=== PATIENT | female | born 1990 | race Caucasian/White ===

== ENCOUNTER 2019-03-14 11:15 | Observation (INO) | payer OTHER ==
[~2019-03-14] VITALS: Ht 157.5 cm; Wt 118.4 kg
== END 2019-03-14 14:40 | disposition home or self-care (01) ==
LOC: SPU 11:15
PROVIDERS: ADMIT Specialist; ATTEND Specialist
DX: Z34.93 Encounter for supervision of normal pregnancy, unspecified, third trimester (principal); Z3A.37 37 weeks gestation of pregnancy
CPT/HCPCS: 76815; 81002; G0378

== ENCOUNTER 2019-03-22 20:00 | Inpatient (IN) | payer OTHER ==
[~2019-03-22] VITALS: Ht 157.5 cm; Wt 117.9 kg
[2019-03-22] MEDS ORDERED: TEMAZEPAM 15 MG CAPSULE PO PRN (21:00)
[2019-03-22] MEDS ORDERED: NALBUPHINE HCL 10 MG/ML AMP IVP PRN (21:30)
[2019-03-22] MEDS ORDERED: TERBUTALINE SULFATE 1 MG/ML VIAL SUBCUT PRN (21:30)
[2019-03-22 22:05] VITALS: BP_SYST 152
[2019-03-22 22:20] LABS: BASOPHILS # (AUTO) 0.1 K/uL (0.0-0.2); BASOPHILS % (AUTO) 0.5 % (0.0-2.0); EOSINOPHILS # (AUTO) 0.2 K/uL (0.0-0.4); EOSINOPHILS % (AUTO) 1.8 % (0.0-4.0); HEMATOCRIT 36.3 % (36-48); HEMOGLOBIN 12.1 g/dL (12.0-16.0); LYMPHOCYTES % (AUTO) 15.5 % (20.5-51.5); MEAN CORPUSCULAR HEMOGLOBIN 29 pg (27-31); MEAN CORPUSCULAR HGB CONC 33 % (32-36); MEAN CORPUSCULAR VOLUME 86 fL (79.0-98.0); MONOCYTES # (AUTO) 0.7 K/uL (0.0-1.0); MONOCYTES % (AUTO) 5.7 % (1.7-9.3); NEUTROPHILS # (AUTO) 9.8 K/uL (1.8-7.7); NEUTROPHILS % (AUTO) 76.5 % (40.0-70.0); PLATELET COUNT (AUTO) 328 K/uL (130-430); RED BLOOD CELL COUNT(AUTO) 4.23 MIL/uL (4.2-6.2); RED CELL DISTRIBUTION WIDTH 14.6 % (9.0-15.0); WHITE BLOOD COUNT (AUTO) 12.9 K/uL (4.8-10.8)
[2019-03-22] MEDS ORDERED: DINOPROSTONE 10 MG SUPP VG SCH (22:20)
[2019-03-22] MEDS: LR 1,000 ML IV SCH (22:23)
[2019-03-23] MEDS: LR 1,000 ML IV SCH ×2 (13:35→18:02)
[2019-03-23] MEDS: OXYTOCIN/0.9 % SODIUM CHLORIDE 1,000 ML IV SCH (13:36)
[2019-03-23] MEDS ORDERED: TEMAZEPAM 15 MG CAPSULE PO SCH (21:00)
[2019-03-24] MEDS: OXYTOCIN/0.9 % SODIUM CHLORIDE 1,000 ML IV SCH (04:31)
[2019-03-24] MEDS: LR 1,000 ML IV SCH (07:14)
[2019-03-24] MEDS ORDERED: LR 500 ML IV ONE (10:09)
[2019-03-24] MEDS ORDERED: FENT2mCg/mL-ROPIVA0.2%/NS EPID 200 ML EP SCH (10:15)
[2019-03-24] MEDS ORDERED: fentaNYL CITRATE/PF 100 MCG/2 ML AMP ONE (10:22)
[2019-03-24] MEDS ORDERED: ROPIVACAINE HCL/PF 0.2% 200 ML ONE (10:22)
[2019-03-24] MEDS ORDERED: CEFAZOLIN 2 GM IVPB PREMIX 50 ML IV ONE (15:45)
[2019-03-24] MEDS ORDERED: LR 1,000 ML IV SCH (16:42)
[2019-03-24] MEDS ORDERED: OXYTOCIN/0.9 % SODIUM CHLORIDE 1,000 ML IV ONE (16:42)
[2019-03-24] MEDS ORDERED: DIPHENHYDRAMINE INJ 50 MG/ML VIAL IVP PRN (16:45)
[2019-03-24] MEDS ORDERED: DIPH-TET-PERTUS Vaccine 0.5 ML VIAL (ADACEL) I.M. PRN (16:45)
[2019-03-24] MEDS ORDERED: KETOROLAC TROMETHAMINE 60 MG/2 ML VIAL IM PRN (16:45)
[2019-03-24] MEDS ORDERED: MEASLES,MUMPS&RUBELLA VACC/PF 12500 UNIT/0.5 ML VIAL SUBQ PRN (16:45)
[2019-03-24] MEDS ORDERED: NALOXONE HCL 0.4 MG/ML AMP (NARCAN) IVP PRN ×2 (16:45)
[2019-03-24] MEDS ORDERED: HYDROcodone/ACETAMIN 5-325 MG TAB (NORCO/ VICODIN) PO PRN (16:45)
[2019-03-24] MEDS ORDERED: NALBUPHINE HCL 10 MG/ML AMP IVP PRN (16:45)
[2019-03-24] MEDS ORDERED: MORPHINE SULFATE 10MG/10ML PF AMP EP SCH (16:45)
[2019-03-24] MEDS ORDERED: LANOLIN 7 GM OINT. TP PRN (16:45)
[2019-03-24] MEDS ORDERED: RHO(D) IMMUNE GLOBULIN/MALTOSE 1500 UNITS/1.3 ML (WINHRO) IM PRN (16:45)
[2019-03-24] MEDS ORDERED: BISACODYL 10 MG/SUPPOSITORY RC PRN (16:45)
[2019-03-24] MEDS ORDERED: ONDANSETRON HCL 4 MG/2 ML VIAL IVP PRN (16:45)
[2019-03-24] MEDS ORDERED: fentaNYL CITRATE/PF 100 MCG/2 ML AMP IVP PRN ×2 (16:45)
[2019-03-24 17:33] VITALS: BP_SYST 115
[2019-03-24] MEDS ORDERED: ONDANSETRON HCL 4 MG/2 ML VIAL ONE (17:40)
[2019-03-24] MEDS ORDERED: MORPHINE SULFATE 10MG/10ML PF AMP EP ONE (17:40)
[2019-03-24] MEDS ORDERED: NS IRRIG SOLN 1000 ML IR ONE (17:40)
[2019-03-24] MEDS ORDERED: OXYTOCIN/0.9 % SODIUM CHLORIDE 20 UNITS/1,000 ML BAG IV ONE (17:40)
[2019-03-24] MEDS ORDERED: LR 1,000 ML IV.SOLN IV ONE (17:40)
[2019-03-24] MEDS ORDERED: TEMAZEPAM 15 MG CAPSULE PO PRN (21:00)
[2019-03-24] MEDS ORDERED: CEFAZOLIN 1 GM IVPB PREMIX 50 ML IV SCH (22:00)
[2019-03-24] MEDS ORDERED: METOCLOPRAMIDE HCL 10 MG/2 ML VIAL IVP PRN (22:45)
[2019-03-24] MEDS ORDERED: METOCLOPRAMIDE HCL 10 MG/2 ML VIAL ONE (22:53)
[2019-03-24] MEDS: SIMETHICONE 80 MG TAB.CHEW PO PRN (23:53)
[2019-03-24] MEDS: KETOROLAC TROMETHAMINE 30 MG VIAL IVP SCH (23:53)
[2019-03-24] MEDS: CEFAZOLIN 1 GM IVPB PREMIX 50 ML IV SCH (23:57)
[2019-03-25] MEDS: KETOROLAC TROMETHAMINE 30 MG VIAL IVP SCH ×4 (05:33→23:49)
[2019-03-25] MEDS: CEFAZOLIN 1 GM IVPB PREMIX 50 ML IV SCH ×2 (05:46→11:31)
[2019-03-25] MEDS: SIMETHICONE 80 MG TAB.CHEW PO PRN ×3 (05:48→20:43)
[2019-03-25 07:30] LABS: BASOPHILS # (AUTO) 0.1 K/uL (0.0-0.2); BASOPHILS % (AUTO) 0.5 % (0.0-2.0); EOSINOPHILS # (AUTO) 0.1 K/uL (0.0-0.4); EOSINOPHILS % (AUTO) 0.8 % (0.0-4.0); HEMATOCRIT 28.9 % (36-48); HEMOGLOBIN 9.7 g/dL (12.0-16.0); LYMPHOCYTES # (AUTO) 1.7 K/uL (1.0-5.5); LYMPHOCYTES % (AUTO) 15.6 % (20.5-51.5); MEAN CORPUSCULAR HEMOGLOBIN 29 pg (27-31); MEAN CORPUSCULAR HGB CONC 34 % (32-36); MEAN CORPUSCULAR VOLUME 87 fL (79.0-98.0); MONOCYTES # (AUTO) 0.8 K/uL (0.0-1.0); MONOCYTES % (AUTO) 7.2 % (1.7-9.3); NEUTROPHILS # (AUTO) 8.3 K/uL (1.8-7.7); NEUTROPHILS % (AUTO) 75.9 % (40.0-70.0); PLATELET COUNT (AUTO) 267 K/uL (130-430); RED BLOOD CELL COUNT(AUTO) 3.34 MIL/uL (4.2-6.2); RED CELL DISTRIBUTION WIDTH 14.9 % (9.0-15.0)
[2019-03-25] MEDS: OXYCODONE/ACETAMINOPHEN 5-325 TABLET PO PRN ×2 (14:27→20:42)
[2019-03-25] MEDS: DOCUSATE SODIUM 100 MG CAPSULE PO PRN (20:43)
[2019-03-25] MEDS: SENNOSIDES/DOCUSATE SODIUM 1 TAB TABLET(SENOKOT-S) PO PRN (23:50)
[2019-03-26] MEDS: OXYCODONE/ACETAMINOPHEN 5-325 TABLET PO PRN ×4 (06:02→22:27)
[2019-03-26] MEDS: SENNOSIDES/DOCUSATE SODIUM 1 TAB TABLET(SENOKOT-S) PO PRN (06:02)
[2019-03-26] MEDS: IBUPROFEN 600 MG TABLET PO SCH ×3 (06:02→17:43)
[2019-03-26] MEDS: DOCUSATE SODIUM 100 MG CAPSULE PO PRN (09:27)
[2019-03-26] MEDS: SIMETHICONE 80 MG TAB.CHEW PO PRN ×2 (09:27→15:04)
[2019-03-27] MEDS: IBUPROFEN 600 MG TABLET PO SCH ×3 (00:02→12:00)
[2019-03-27] MEDS: OXYCODONE/ACETAMINOPHEN 5-325 TABLET PO PRN ×2 (07:58→12:00)
== END 2019-03-27 13:15 | disposition home or self-care (01) | DRG 788 ==
LOC: SPU 21:04
PROVIDERS: ADMIT Specialist; ATTEND Specialist
PROC: 3E0P7VZ Introduction of Hormone into Female Reproductive, Via Natural or Artificial Opening (ICD-10-PCS; 2019-03-24)
PROC: 10D00Z1 Extraction of Products of Conception, Low, Open Approach (ICD-10-PCS; principal; 2019-03-25)
DX: O62.2 Other uterine inertia (principal); O69.81X0 Labor and delivery complicated by cord around neck, without compression, not applicable or unspecified; O33.5XX0 Maternal care for disproportion due to unusually large fetus, not applicable or unspecified; O34.13 Maternal care for benign tumor of corpus uteri, third trimester; O61.8 Other failed induction of labor; D25.2 Subserosal leiomyoma of uterus; Z37.0 Single live birth; Z3A.39 39 weeks gestation of pregnancy
CPT/HCPCS: 36415; 81002-TC; 85025; 86886; 86900; 86901; 94760; J0690; J1885; J2274; J2300; J2405; J2590; J2765; J3010; J7120